=== PATIENT | female | born 1970 | race Caucasian/White ===

== ENCOUNTER 2024-03-16 09:13 | Inpatient (IN) ==
[2024-03-16 10:25] LABS: ABS Lymphocytes 1.6 10^3/uL (1.0-4.8); ABS Monocytes 1.1 10^3/uL (0.0-0.9); ABS Neutrophils 7.3 10^3/uL (1.5-7.6); Eosinophil % 0.3 %; Hematocrit 39.5 % (35-45); Hemoglobin 13.2 g/dL (11.5-14.3); Lymphocyte % 16.1 %; Mean Corpuscular Hemoglobin 31.9 pg (27-33); Mean Corpuscular Hgb Conc 33.4 g/dL (31-36); Mean Corpuscular Volume 95.6 fL (80-97); Mean Platelet Volume 11.5 fL (7.5-11.2); Platelet Count 104 10^3/uL (150-450); Red Blood Count 4.13 10^6/uL (3.63-4.92); Red Cell Distribution Width 13.8 % (12-17); White Blood Count 10.2 10^3/uL (3.8-11.8)
[2024-03-16 10:29] LABS: INR 1.04 (0.85-1.14)
[2024-03-16] MEDS: Lactated Ringers 1000 ml BAG 1,000 ML IV ONE ×2 (10:30→12:43)
[2024-03-16 10:50] LABS: ALT 6 U/L (7-52); AST 12 U/L (13-39); Albumin 3.9 g/dL (3.2-5.2); Albumin/Globulin Ratio 1.3 (1-3); Alkaline Phosphatase 54 U/L (35-149); Anion Gap 4 mmol/L (2-16); Blood Urea Nitrogen 33 mg/dL (6-24); C Reactive Protein 58.11 mg/L (<8.01); CO2 Carbon Dioxide 30 mmol/L (22-32); Chloride 102 mmol/L (101-111); Creatinine, Serum 2.48 mg/dL (0.51-0.95); Glucose 92 mg/dL (70-100); Lipase 53 U/L (11.0-82.0); Potassium 3.8 mmol/L (3.5-5.0); Sodium 136 mmol/L (135-145); Total Bilirubin 0.4 mg/dL (0.2-1.0); Total Protein 6.9 g/dL (6.4-8.9); eGFR CKD-EPI 22.9 (>60)
[2024-03-16 10:53] LABS: HCG Pregnancy < 0.60 mIU/mL
[2024-03-16 13:16] LABS: Urine Appearance Clear; Urine Bilirubin Negative (Negative); Urine Blood 1+ (Negative); Urine Color Colorless; Urine Glucose Negative (Negative); Urine Ketones Negative (Negative); Urine Nitrite Negative (Negative); Urine Protein Negative (Negative); Urine Specific Gravity 1.006 (1.002-1.030); Urine Urobilinogen Negative (Negative); Urine pH 7.5 (5.0-8.0)
[2024-03-16] MEDS: cefTRIAXone 2 gm/50 mL D5W 2 GM/50 ML BAG IV ONE (13:16)
[2024-03-16 13:24] LABS: Urine Bacteria Absent /HPF (Absent); Urine Red Blood Cell 1+(3-5/hpf) /HPF (0-Trace); Urine Squamous Epithelial Cell Present /HPF (Absent); Urine White Blood Cell Trace(0-5/hpf) /HPF (0-Trace)
[2024-03-16] MEDS ORDERED: Ondansetron ODT 4 mg TAB 4 MG TAB SL PRN (15:21)
[2024-03-16] MEDS ORDERED: Iohexol 180 (CONTRAST) 10 ML SDV IV ONE (15:28)
[2024-03-16] MEDS ORDERED: Midazolam 2 mg/2 ml VIAL 1 mg/ml 2 ml VIAL (2 mg) ONE ×2 (15:31→15:32)
[2024-03-16] MEDS ORDERED: KETAMINE HCL 10 MG/ML 20 ml VIAL (200 MG) ONE (15:31)
[2024-03-16] MEDS ORDERED: fentaNYL 100 mcg/2 ml 50 MCG/ML VIAL ONE (15:31)
[2024-03-16] MEDS: NS 0.9% 1000 ml BAG 1,000 ML IV SCH ×2 (17:46→18:13)
[2024-03-17] MEDS: Lactated Ringers 1000 ml BAG 1,000 ML IV SCH (10:43)
[2024-03-17] MEDS ORDERED: cefTRIAXone 1 gm/50 mL D5W 1 GM/50 ML BAG IV SCH (12:00)
[2024-03-17 12:51] LABS: Calcium 8.6 mg/dL (8.6-10.3); Creatinine, Serum 1.3 mg/dL (0.51-0.95); eGFR CKD-EPI 49.8 (>60)
[2024-03-17 13:02] LABS: Hematocrit 35.6 % (35-45); Hemoglobin 11.8 g/dL (11.5-14.3); Mean Corpuscular Hgb Conc 33.3 g/dL (31-36); Mean Corpuscular Volume 96.2 fL (80-97); Mean Platelet Volume 11.7 fL (7.5-11.2); Platelet Count 97 10^3/uL (150-450); Red Cell Distribution Width 13.4 % (12-17); White Blood Count 8.3 10^3/uL (3.8-11.8)
[2024-03-17] MEDS: cefTRIAXone 1 gm/50 mL D5W 1 GM/50 ML BAG IV SCH (13:53)
[2024-03-17 13:54] VITALS: BP 93/64
== END 2024-03-17 14:35 | DRG 660 ==
LOC: ED 09:13 → EDHOLD 13:22 → SUATTDRO 13:22 → AA 14:23 → SSU 14:28
PROVIDERS: ADMIT Hospitalist; ATTEND Internal Medicine